=== PATIENT | female | born 1975 ===

== ENCOUNTER → 2025-10-08 10:49 | Outpatient (CLI) | payer OTHER, SELFPAY ==
[2025-10-08 12:23] LABS: Cholesterol 272 mg/dL (140-199); Triglycerides 81 mg/dL (35-150)
[2025-10-08 12:30] LABS: HDL Cholesterol 108 mg/dL (40-60)
[2025-10-08 12:39] LABS: Free T4, Direct Thyroxine 1.19 ng/dL (0.78-2.19)
[2025-10-08 12:53] LABS: Thyroid Stimulating Hormone 1.24 uIU/mL (0.47-4.68)
== END ==
PROVIDERS: PCP Registered Nurse Diabetes Educator; Referring Provider Registered Nurse Diabetes Educator; Visit Provider Registered Nurse Diabetes Educator
DX: E66.3 Overweight (principal)
CPT/HCPCS: 36415; 80061; 84439; 84443